=== PATIENT | female | born 1960 | race Caucasian/White ===

== ENCOUNTER 2017-05-20 20:36 | Emergency (ER) | payer OTHER ==
[~2017-05-20] VITALS: Ht 287 cm; Wt 96.2 kg
--- NOTE | ~2017-05-20 | EKG ---
PATIENT: SABINA JACKSON UNIT #: [id number] Ventricular Rate: 85 BPM Atrial Rate: 85 BPM P-R Interval: 180 ms QRS Duration: 76 ms Q-T Interval: 362 ms QTC Calculation(Bezet): 430 ms P [place]: 49 degrees Calculated R [place]: 3 degrees Calculated T [place]: 63 degrees Diagnosis Line: Normal sinus rhythm Diagnosis Line: Possible Left atrial enlargement Diagnosis Line: Borderline ECG Diagnosis Line: When compared with ECG of 15-APR-2013 21:26, Diagnosis Line: T wave inversion no longer evident in Anterior Diagnosis Line: leads Diagnosis Line: Confirmed by NITHIN JAMIL MD ([id number]) on Diagnosis Line: 05/21/2017 4:05:06 PM INTERPRETING MD: LOULOU GUILLEN
--- NOTE | ~2017-05-20 | CT16 ---
[facility] A Service of [facility] RADIOLOGY TEXT RESULTS PATIENT: SABINA JACKSON LOCATION: SED : 62 UNIT #: [id number] AGE: [address]: Aravind Lantigua MD SEX: F ORDER DR: [id number] [address] [address] [id number] MR#: [id number] Acc #: [id number] NAME: SABINA JACKSON : 1960 SEX: F STUDY DATE/TIME: 05/20/2017 21:46 UNIT: SED ROOM: STUDY DESCRIPTION: CT Angio Chest for PE Attending Physician: Aravind Lantigua M.D. Ordering Physician: Aravind Lantigua M.D. Primary Care Physician: Mook Sahu M.D. MEDICAL IMAGING REPORT This report is preliminary unless electronic signature is present. EXAM CT chest with contrast, pulmonary arteriography protocol, 05/20/2017 HISTORY 56-year-old female in the ED complaining of 1-week history of left side chest pain. TECHNIQUE CT examination of the chest with IV contrast using pulmonary arteriography protocol. CTA MIP images of the pulmonary arteries were reformatted in multiple planes. This CT exam was performed with one or more of the following radiation dose reduction techniques: automatic exposure control, adjustment of mA and/or kV according to patient size, and iterative reconstruction. FINDINGS No pulmonary embolism is demonstrated. Thoracic aorta is normal in caliber with no aneurysm or dissection. Heart size is normal, and there is no pericardial effusion. The lungs are expanded and clear. No pleural effusion. No suspicious mass or adenopathy is seen within the mediastinum or pulmonary clarisse. No rib fracture or other chest wall lesion is identified. Limited upper abdominal images are negative. IMPRESSION Negative chest CT examination using pulmonary arteriography protocol. Dictated by... [facility] A Service [facility] RADIOLOGY TEXT RESULTS PATIENT: SABINA JACKSON LOCATION: SED : 62 UNIT #: [id number] AGE: [address]: Aravind Lantigua MD SEX: F ORDER DR: Landen Storey M.D. THIS IS AN ELECTRONICALLY VERIFIED REPORT Landen Storey M.D. at 05/21/2017 6:07 AM PRAVIN/jonelle TD: 05/20/2017 23:30 JOB #: [id number] MEDICAL IMAGING REPORT Page 1 of 1
[~2017-05-20 20:36] MED LIST: ASPIRIN ENTERI325 M1 PO; BENTYL20 MG PO; EFFEXOR; KEFLEX PO; KEFLEX500 MG PO; LEXAPRO PO; LIPITOR PO; PHENERGAN PO; PREMPRO PO; SAVELLA1 EACH PO; SYNTHROID; SYNTHROID25 MCG PO
[2017-05-20 21:03] LABS: BASOPHIL# 0.2 X10e3 (0-0.3); BASOPHIL% 1.8 % (0-2.5); EOSINOPHIL# 0.2 X10e3 (0-0.7); EOSINOPHIL% 2.7 % (0.0-7.0); HEMATOCRIT 48.2 % (35.0-45.0); HEMOGLOBIN 16.5 gm/dL (12.0-16.0); LYMPHOCYTE# 2.4 X10e3 (1.0-3.5); LYMPHOCYTE% 27.1 % (17.0-45.0); MEAN CELL VOLUME 86.6 FL (83-96); MEAN CORPUSCULAR HEMOGLOBIN 29.6 PG (28-34); MEAN CORPUSCULAR HGB CONC 34.2 g/dL (30-36); MEAN PLATELET VOLUME 9.2 FL (6.5-11.5); MONOCYTE# 0.4 X10e3 (0-1.0); MONOCYTE% 4.7 % (3.0-12.0); NEUTROPHIL# 5.7 X10e3 (1.5-7.1); NEUTROPHIL% 63.7 % (40-75); PLATELET COUNT 266 X10e3 (140-420); RED BLOOD COUNT 5.56 X10e (3.90-5.30); RED CELL DISTRIBUTION WIDTH 14.1 % (11.0-15.5); WHITE BLOOD COUNT 8.9 X10e3 (4.0-10.5)
[2017-05-20 21:06] LABS: DIFF IND NO
[2017-05-20 21:08] LABS: POC - CKMB <1.0 ng/mL (0.0-7.9); POC - TROPONIN <0.05 ng/mL (<=0.05)
[2017-05-20 21:13] LABS: INR 0.9; PROTHROMBIN TIME (PATIENT) 10.6 SECONDS (9.5-12.4)
[2017-05-20 21:20] LABS: PARTIAL THROMBOPLASTIN TIME 29.8 SECONDS (25.6-38.1)
[2017-05-20 21:28] LABS: ALBUMIN SERUM 4.5 g/dL (3.5-5.0); BILIRUBIN, DIRECT 0.2 mg/dL (0.0-0.2); BILIRUBIN,INDIRECT 0.5 mg/dL (0.0-0.9); BILIRUBIN,TOTAL 0.7 mg/dL (0.2-2.0); BUN/CREATININE RATIO 16.25; CALCIUM SERUM 9.3 mg/dL (8.4-10.2); CREATININE SERUM 0.8 mg/dL (0.6-1.4); GLOM FILT RATE Estimated 83.1 mL/min (>60); PROTEIN TOTAL SERUM 7.4 g/dL (6.0-8.3)
== END 2017-05-20 22:59 | disposition home or self-care (01) ==
LOC: SED 20:36
PROVIDERS: Emergency Medicine
DX: R07.89 Other chest pain (principal); E78.5 Hyperlipidemia, unspecified; F32.9 Major depressive disorder, single episode, unspecified; F17.210 Nicotine dependence, cigarettes, uncomplicated; Z88.1 Allergy status to other antibiotic agents; Z88.8 Allergy status to other drugs, medicaments and biological substances
CPT/HCPCS: 36415; 71275; 80048; 80076; 82553; 84484; 85025; 85379; 85610; 85730; 93005; 99285; Q9967